=== PATIENT | female | born 1980 | race Caucasian/White ===

== ENCOUNTER 2016-12-24 16:52 | Observation (INO) | payer OTHER ==
[2016-12-24] MEDS ORDERED: HOME MEDICATION LIST NEEDED 1 EA EACH MC ONE (16:54)
[2016-12-24] MEDS ORDERED: MAG-AL PLUS XS SUSP 30 ML UDC PO PRN (16:54)
[2016-12-24] MEDS ORDERED: ACETAMINOPHEN 325 MG TABLET PO PRN (16:54)
[2016-12-24] MEDS ORDERED: ONDANSETRON ODT 4 MG TAB.RAPDIS PO PRN ×2 (17:03→17:34)
[2016-12-24] MEDS ORDERED: FUROSEMIDE 20 MG TABLET PO PRN (17:05)
[2016-12-24] MEDS ORDERED: POTASSIUM CHLORIDE ER 10 MEQ TABLET PO PRN (17:06)
[2016-12-24] MEDS ORDERED: HOME MEDICATION LIST NEEDED 1 EA EACH MISC ONE (20:00)
[2016-12-24] MEDS ORDERED: GABAPENTIN 100 MG CAPSULE PO SCH (21:00)
[2016-12-24] MEDS ORDERED: DULOXETINE 30 MG CAPSULE.DR PO SCH (21:00)
[2016-12-24] MEDS ORDERED: AMITRIPTYLINE HCL 25 MG TABLET PO SCH (21:00)
[2016-12-24] MEDS: ENOXAPARIN SODIUM 100 MG/ML SYR SUBCUT SCH (21:17)
[2016-12-24] MEDS: ALPRAZolam 0.5 MG TABLET PO SCH (21:19)
[2016-12-24] MEDS: NON-FORMULARY MEDICATION SUBLINGUAL SCH (21:20)
[2016-12-24] MEDS: GABAPENTIN 300 MG CAPSULE PO SCH (21:20)
[2016-12-24] MEDS: SOMA 350 MG PO SCH (21:37)
[2016-12-25 05:45] VITALS: BP 148/80; PULSE 88; RESP 14; TEMP 98; O2SAT 95
[2016-12-25] MEDS ORDERED: PANTOPRAZOLE 40 MG TABLET PO SCH (06:30)
--- NOTE | 2016-12-25 07:04 | HISTORY & PHYSICAL ---
DATE OF ADMISSION: 12/24/16 ATTENDING PHYSICIAN: Sherwin Blackwell MD CHIEF COMPLAINT: Shortness of breath. HISTORY OF PRESENT ILLNESS: Patient presents with a 2-week history of shortness of breath and dyspnea on exertion. She was evaluated in an [place] ER where she had a positive D-Dimer 575 but negative venous Doppler for deep vein thrombosis. She describes some vague tingling and numbness in her hands. She has had some edema in her legs for which she has taken Lasix. ALLERGIES: NSAIDs (gastric bypass surgery, PUD). Fragmin (rash at injection site 2012). Lovenox (rash at injection 2011). Lovenox rash at injection site 2011. Maxalt (syncope). Sulfa (hives). MEDICATIONS Suboxone 8 mg/2 mg sublingual t.i.d. Lasix 20 mg p.o. q.a.m. PRN edema. KCL 10 MEQ p.o. daily PRN with Lasix. Soma 350 mg p.o. t.i.d. Multivitamin 1 tab p.o. b.i.d. Prilosec 20 mg p.o. daily. Tylenol 500 mg p.o. daily PRN which she has been taking on a regular basis. B12 1000 mcg/mL 1 mL IM q.month. Cymbalta 60 mg p.o. daily. Alprazolam 0.5 mg p.o. daily PRN anxiety. Zofran 4 mg 2 tabs p.o. q.4 hours PRN nausea. Gabapentin 1200 mg p.o. t.i.d. Depoprovera IM 150 mg IM q.3 months. PAST MEDICAL HISTORY 1. Chronic pain syndrome, followed by Dr. Sanchez, with underlying opioid induced hyperalgesia. 2. Fibromyalgia. 3. Right deep vein thrombosis 2009 secondary to ankle sprain/fracture. 4. Hypothyroidism diagnosed in 2006 and currently off medications. 5. Chronic nausea. 6. Chronic sinusitis. 7. Morbid obesity. 8. Sleep apnea. 9. Migraines. 10. Anxiety. 11. Depression. 12. Chronic thoracic back pain and bilateral sacroiliitis. 13. Chronic neck pain. 14. Dysmenorrhea for which she uses Depo-Provera. 15. History of elevated CPK. 16. Gastric bypass surgery 2012. SOCIAL HISTORY: Single. No children. sonar technician, currently working in [place]. No alcohol. Quit smoking 2010. FAMILY HISTORY: Mother with hypertension. Father of pancreatic cancer at age 59 and had diabetes, hypertension, hyperlipidemia and cerebrovascular accident. Paternal grandfather with cerebrovascular accident. Paternal uncle with cerebrovascular accident. Sister with endometriosis. Paternal aunt with breast cancer. Paternal grandmother with breast cancer. REVIEW OF SYSTEMS: No heart, asthma, emphysema, kidney, liver, diabetes, seizures, peptic ulcer disease, hypertension, hyperlipidemia, skin, allergy or bleeding disorders. No urinary problems. PREVENTATIVE HEALTH: Tdap 2010. Flu shot 06/2016. PHYSICAL EXAMINATION VITAL SIGNS: Temperature 98.1, pulse 99, respiratory rate 16, blood pressure 120/78, approximate weight 345 pounds. Height 67 inches. Room air pulse oxygen 81% which yvonne to 91% at rest initially, but when she ambulated, it dropped down to 81% and pulse yvonne to 120 with respiratory rate 24. GENERAL: Morbidly obese female, NAD, alert and oriented x3. HEENT: EOMI. Pupils equally round. Normal conjunctivae. No coryza. Pharynx not injected. Midline structures. NECK: No lymphadenopathy. No thyromegaly. No carotid bruits. Neck supple. CHEST: Clear. No rales, rhonchi or wheezes. Good breath sounds and symmetry throughout. No pleurisy. COR: RRR without murmurs, gallops, rubs or clicks. No jugular venous distention. No ectopy. ABDOMEN: Soft, nontender. No hepatosplenomegaly. No masses. No bruits. No inguinal nodes. Bowel sounds present. LOWER EXTREMITIES: 1+ nonpitting edema. No calf tenderness. Negative Homans sign. No popliteal tenderness. LABORATORY DATA: White blood cell count 7.9, hemoglobin and hematocrit 12.3/36.8 , platelets 319,000, sodium 141, potassium 4.1, chloride 105, CO2 25, glucose 90 , BUN 9, creatinine 0.6, calcium 9.4, ALT 50, albumin 4.3, alkaline phosphatase 121. AST 47. Total bilirubin 0.6, total protein 7.5. Pro-BNP 1,580. Positive D- Dimer 480. Chest CT scan with pulmonary embolism protocol report showed acute pulmonary embolism involving the main right pulmonary artery with extension into the lobar and segmental vessels, with associated right upper lobe pulmonary infarct. (Verbal communication from the Radiologist revealed evidence of right upper lobe and right lower lobe pulmonary embolisms with involvement of the man pulmonary artery, along with infarction of a segment of the right upper lobe). ASSESSMENT: Pulmonary embolism. PLAN 1. Start Lovenox 150 mg sub.q q.12 hours x10 doses. 2. Upon completion of the Lovenox, patient can start Pradaxa 150 mg p.o. b.i.d. 3. Will provide Lovenox and Pradaxa teaching. 4. Repeat bilateral leg venous Doppler to determine if this could be the source. 5. Consider hematology and pulmonary consultation based on response. 6. Leiden Factor 5, Protein S/C pending. Copies to: Dr. Sanchez ([facility]) MARJD
[2016-12-25] MEDS: GABAPENTIN 300 MG CAPSULE PO SCH (08:04)
[2016-12-25] MEDS: NON-FORMULARY MEDICATION SUBLINGUAL SCH (08:05)
[2016-12-25] MEDS: ENOXAPARIN SODIUM 100 MG/ML SYR SUBCUT SCH (08:05)
[2016-12-25] MEDS: ALPRAZolam 0.5 MG TABLET PO SCH (08:06)
[2016-12-25] MEDS: SOMA 350 MG PO SCH (08:07)
[2016-12-25] MEDS ORDERED: DULOXETINE 30 MG CAPSULE.DR PO SCH (09:00)
--- NOTE | 2016-12-25 09:02 | PROGRESS NOTE: IM SOAP ---
IM: PN Subjective Interval history: No CP, SOB, pleurisy IM: PN Objective Exam - I&O/Vital Signs I&O: Intake & Output 12/24/16 12/25/16 12/25/16 21:59 05:59 13:59 Intake Total 630 Balance 630 Weight 154.221 kg 150.5 kg Intake: Oral 630 Other: Urine Appearance Clear Urine Color Yellow Voiding Method Toilet Toilet # Voids 3 Vital Signs: Last Vital Signs Temp 36.7 C 12/25/16 05:44 Pulse 88 12/25/16 05:44 Resp 14 12/25/16 05:44 BP 148/80 12/25/16 05:44 Pulse Ox 95 12/25/16 05:44 Oxygen Flow Rate 2 Oxygen Delivery Method Nasal Cannula - Respiratory Respiratory exam: Present: clear - Cardiovascular Cardiovascular exam: Present: RRR. Absent: systolic murmur - GI/Abdominal GI/Abdominal exam: Present: soft. Absent: tenderness - Extremities Exam Extremities exam: Absent: calf tenderness, Vicky's Sign, edema Assessment and Plan - Date of Encounter Date of Encounter: 12/25/16 (1) Pulmonary embolism Status: Acute Assessment and plan: Leiden Factor 5, Protein S/C pending Lovenox teaching completed D/C home on Lovenox for total of 10 shots following pt starts Pradaxa 150mg po bid x 4 months Current Visit: Yes - Time Spent With Patient Total time spent with greater than 50% in coordination of care (as documented) at patient's floor/unit and/or counseling patient: Quality Questions - VTE Prophylaxis Assessment VTE Present on Admission?: Yes Patient at risk for venous thromboembolism?: No VTE Risk Level: High Risk Pharmaceutical VTE prophylaxis contraindication reason: N/A- VTE prophylaxsis ordered Mechanical VTE prophylaxis contraindication reason: N/A- VTE prophylaxsis ordered
--- NOTE | 2016-12-25 10:46 | US REPORT ---
HISTORY: Bilateral lower extremity pain. History of acute pulmonary embolism. COMPARISON: CT pulmonary angiogram 12/24/2016. FINDINGS: Duplex Doppler color flow sonography, 2D ultrasound of vascular anatomy, and Doppler spectral analysi s of the left and right lower extremity veins was performed. The common femoral, superficial femoral, and popliteal veins are fully patent, with normal compressib ility, no filling defect, normal waveforms, and normal augmentation. The calf veins are patent. No Chandler's cyst noted. IMPRESSION: Normal bilateral lower extremity ultrasound. Final Electronic Signature: This report was electronically signed by Israel Gutierrez MD, FACR on 2016 10:44 AM. andrea /
--- NOTE | 2016-12-25 20:28 | DISCHARGE SUMMARY ---
DATE OF ADMISSION: 12/24/16 DATE OF DISCHARGE: 12/25/16 ATTENDING PHYSICIAN: Sherwin Blackwell MD DIAGNOSIS: Pulmonary embolism. PROCEDURES 1. Chest CT scan with pulmonary embolism protocol. 2. Bilateral leg venous Doppler. HISTORY OF PRESENT ILLNESS: Patient is a 36-year-old female with a history of a deep vein thrombosis, who presented with a 2-week history of shortness of breath and dyspnea on exertion. She was evaluated in an [place] ER, where she had a positive D-Dimer 575 but negative bilateral leg venous Doppler with no evidence of deep vein thrombosis. She described some vague tingling and numbness in her hands. She has had some edema in her legs for which she has taken Lasix. Please see previously dictated history and physical for further details. HOSPITAL COURSE: Patient was initially seen in clinic where she again had a positive D-Dimer of 480 and elevated pro-BNP 1,580. Chest CT scan with pulmonary embolism protocol showed acute pulmonary embolism involving the main right pulmonary artery with extension into the lobar and segmental vessels with associated right upper lobe pulmonary infarct. Patient was started on Lovenox 150 mg sub.q q.12 hours, she had 2 doses in the hospital and will receive an additional 8 doses on an outpatient basis. Thereafter she was started on Pradaxa 150 mg p.o. b.i.d. Nursing teaching was provided with respect to these medications, including risks, benefits, etc. I did discuss with the patient the risks including the risk of intracranial hemorrhage, epistaxis, GI bleed, hematuria, , etc., but also the risk of not taking medications, in particular . I encouraged him to wear an arm bracelet to indicate that she is taking Pradaxa. Lichen Factor V, protein assay and protein C lab work is pending. She was hypoxic on presentation, but is improved to a room air pulse oxygen of 87% at time of discharge. She plans to stay with family in [facility], and we elected not to make arrangements for oxygen. She will be returning to [place] shortly. She may wish to consider hematology and/or pulmonary consultation while in [place] or if when she returns in 4 months, we can do that in [place] as well. We would like to keep her on the Pradaxa for a minimum of 4 months. DISCHARGE INSTRUCTIONS: Patient may participate in activities as able and be on a regular diet. She will have a follow up appointment with Dr. Blackwell when she returns from [place]. As above, she may need to see Hematology and/or Pulmonology while in [place]. She is to call or return to clinic or go to the ER if she develops increasing chest pain, shortness of breath or otherwise begins to worsen in any manner. DISCHARGE MEDICATIONS Cymbalta 60 mg p.o. daily. Depo-Provera 150 mg IM q.3 months. Flonase nasal inhaler 1 spray each nostril b.i.d. PRN. Lasix 20 mg p.o. daily PRN. Gabapentin 1200 mg p.o. t.i.d. Omeprazole 20 mg p.o. daily. KCL 10 MEQ p.o. daily PRN. Soma 350 mg p.o. t.i.d. #270, 1 refill. Suboxone 8 mg/2 mg 1 strip sublingual t.i.d. Multivitamin 1 tab p.o. daily. Tylenol extra strength 500 mg p.o. daily PRN. Vitamin B12 1000 mcg/mL 1 mL IM q.month. Alprazolam 0.5 mg p.o. b.i.d. PRN. Zofran OTD 4 mg 8 mg p.o. q.6 hours PRN. Lovenox 150 mg sub.q q.12 hours x8 doses nursing teaching was provided to the patient in this regard. Omeprazole 20 mg p.o. daily. Pradaxa 150 mg p.o. b.i.d., to be started upon completion of Lovenox shots, #60 tablets, 3 refill. Copies to: Dr. Laura CACERES
[2016-12-30 12:13] LABS: PROTEIN C ACTIVITY SEE COMMENTS (()); PROTEIN C ANTIGEN SEE COMMENTS (()); PROTEIN S ACTIVITY SEE COMMENTS (()); PROTEIN S ANTIGEN SEE COMMENTS (())
== END 2016-12-25 09:12 | disposition home or self-care (01) ==
LOC: IN 16:52
PROVIDERS: ADMIT Family Medicine; ATTEND Family Medicine
DX: I26.99 Other pulmonary embolism without acute cor pulmonale (principal); G89.4 Chronic pain syndrome; E66.2 Morbid (severe) obesity with alveolar hypoventilation; F41.8 Other specified anxiety disorders; G47.30 Sleep apnea, unspecified; E03.9 Hypothyroidism, unspecified; M79.7 Fibromyalgia; N94.6 Dysmenorrhea, unspecified; Z86.718 Personal history of other venous thrombosis and embolism; Z98.84 Bariatric surgery status; Z79.899 Other long term (current) drug therapy
CPT/HCPCS: 85302; 85303; 85306; 93005; 93041; 93970; 96372; G0378; G0379; J1650